=== PATIENT | female | born 1995 | race Two or more races ===

== ENCOUNTER 2021-11-15 15:10 | Emergency (ER) | payer OTHER, SELFPAY ==
[2021-11-15 15:57] VITALS: BP 111/75; PULSE 81; RESP 16; TEMP 37.1; O2SAT 100; BMI 23.8
--- NOTE | 2021-11-15 17:06 | ED_ITS ---
HPI - Abdominal Pain General Chief Complaint: Abdominal Pain Stated Complaint: abd pain,diarrhea, Time Seen by Provider: 11/15/21 17:06 Source: patient and anodizer Mode of arrival: ambulatory Limitations: language barrier History of Present Illness HPI narrative: Patient is a 26 year old female presenting to the emergency department today with abdominal pain and nausea. Patient states that for the last couple of days, she has had epigastric type abdominal pain and nausea. Patient denies any dizz iness, lightheadedness, vomiting, fever, chills, blurry vision, double vision, loss of vision, vaginal bleeding, vaginal discharge, chest pain, difficulty breathing, shortness of breath, back pain, night sweats, pain with urination, increased urinary frequency, increased urinary urgency, blood in her urine or stool, syncope or a near syncopal episode, recent trauma or falls, bowel incontinence, bladder incontinence, bowel retention, bladder retention, or any other complaints at this time. MD elicited complaint: abdominal pain Pertinent past history: none Onset (ago): day(s) Pain Consistency: intermittent Location: diffuse and epigastric Severity: mild Quality: dull Radiation: none Exacerbating factors: nothing Relieving factors: nothing Associated symptoms: nausea Related Data Previous Rx's Medication Instructions Recorded ondansetron 4 mg disintegrating 4 mg PO Q8H 3 Days #9 tab 11/15/21 tablet Allergies Allergy/AdvReac Type Severity Reaction Status Date / Time No Known Allergies Allergy Verified 11/15/21 15:56 Review of Systems Constitutional: Reports no additional constitutional complaints, Denies chills, Denies fever(s) and Denies night sweats Eyes: Reports no additional eye complaints, Denies blurry vision, Denies change in vision, Denies diplopia, Denies eye discharge, Denies loss of vision and Denies eye pain Denies dizziness Cardiovascular: Reports no additional cardiovascular complaints, Denies chest pain, Denies lightheadedness, Denies Loss of Consciousness and Denies dyspnea Respiratory: Reports no additional respiratory complaints and Denies dyspnea Gastrointestinal: Reports no additional gastrointestinal complaints, Reports abdominal pain, Denies melena, Denies hematochezia, Denies change in bowel habits, Denies change in stool character and Reports nausea Genitourinary: Denies hematuria, Denies urinary frequency, Denies dysuria, Denies urinary incontinence, Denies urinary hesitancy and Denies urinary urgency Musculoskeletal: Reports no additional musculoskeletal complaints, Denies numbness and Denies tingling Denies dizziness, Denies loss of vision, Denies numbness and Denies tingling Psychiatric: Reports no additional psychiatric complaints Endocrine: Reports no additional endocrine complaints Hematologic/Lymphatic: Reports no additional hematologic/lymphatic complaints Allergic/Immunologic: Reports no additional allergic/immunologic complaints Physical Exam Verdana 4l Vital Signs: Verdana 4d Verdana 4d Vital Signs: Verdana 4d Verdana 4Bd Last Vital Signs Verdana 4d Tax Auditor New 4d Tax Auditor New 4d Temp 98.5 F 11/15/21 18:00 Tax Auditor New 4d Pulse 79 11/15/21 18:00 Tax Auditor New 4d Resp 16 11/15/21 18:00 BP 116/79 11/15/21 18:00 Pulse Ox 100 11/15/21 18:00 BMI result Body Mass Index 23.8 Const: General: cooperative, no acute distress, alert and awake Nutritional Appearance: well nourished Orientation/consciousness: patient oriented x3 Limitations: no limitations HENMT: Head: Yes normal to inspection and Yes atraumatic Ears: hearing grossly normal bilaterally and external ears normal General nose exam: Normal external nose present, no nasal discharge noted and no epistaxis Face and sinus: Yes normal facial exam, No abrasion and No laceration Mouth: Normal oral and palatal mucosa present, no drooling and no muffled voice Eyes: General: appearance normal, both eyes and all related structures Periorbital: periorbital findings normal Eyelids: Yes eyelids normal Conjunctivae: conjunctivae normal Pupils: Equal, round and reactive pupils present EOM: EOMs intact bilaterally Neck: Neck: Yes normal visual inspection, Yes full ROM and Yes no lymphadenopathy Chest: Chest palpation & inspection: normal inspection of the chest Resp: Effort & Inspection: normal respiratory effort and able to speak in complete sentences Auscultation: clear to auscultation bilaterally Cardio: Rate: regular rate Rhythm: regular rhythm GI: Inspection: Yes normal to inspection Palpation (GI): Soft to palpation, not firm and Tenderness to palpation present (GI) in the epigastrum Auscultation: normal bowel sounds Neuro: General: patient oriented x3 and moves all extremities Cranial nerves: Yes Equal, round and reactive pupils present Cognition (Neuro): normal cognition Motor exam (neuro): 5/5 motor strength present throughout Sensory Exam: Normal double simultaneous stimulation for sensation Coordination: [id number] test normal Extrem: General: Yes normal to inspection, Yes full ROM and Yes capillary refill normal Psych: Appearance: grossly normal Mental Status: mental status grossly normal Affect: normal affect Attitude: cooperative Thought process: Normal thought process present Thought content: Normal thought content present Insight: Good insight present (Psych) MDM - Abdominal Pain MDM Narrative Medical decision making narrative: Patient is a 26 year old female presenting to the emergency department today with abdominal pain and nausea. Patient's physical exam was unremarkable. Patient's blood work was unremarkable. Patient's urine showed no acute process. Patient's EKG was unremarkable. I explained my physical exam findings as well as all test results to the patient. I answered all questions asked by the patient. Patient received PO Zofran which she stated helped her symptoms significantly. I stressed the importance of the patient taking her medication as prescribed. I stressed the importance of the patient following up with her primary care provider. I stressed the importance of the patient returning to the emergency department immediately if her symptoms were to worsen or if she were to develop any dizziness, shortness of breath, difficulty breathing, chest pain, blurry vision, loss of vision, nausea, vomiting, abdominal pain, fever, chills, back pain, or any other complaints. Patient verbalized agreement and understanding with this treatment plan and discharge. Differential Diagnosis Differential diagnosis: Likely abdominal pain, gastroenteritis and gastritis Medical Records Attestation: I reviewed the patient's medical records. Lab Data Attestation: I reviewed the patient's lab results. Result diagrams: 11/15/21 17:51 11/15/21 17:51 Labs: Lab Results 11/15/21 11/15/21 11/15/21 Range/Units 17:31 17:51 17:51 WBC 5.2 (4.8-10.8) X10*3/uL RBC 4.20 (4.20-5.50) X10*6/uL Hgb 12.3 (12.0-16.0) g/dl Hct 36.9 L (37.0-47.0) % MCV 87.9 (80.0-98.0) fL MCH 29.3 (27.0-33.0) pg MCHC 33.3 (31.0-35.0) g/dl RDW 11.5 (11.0-16.0) % Plt Count 242 (160-400) X10*3/uL MPV 10.0 (9.4-12.3) fL Immature Gran % (Auto) 0.2 (0.0-0.4) % Neut % (Auto) 56.0 (45-73) % Lymph % (Auto) 30.8 (20-40) % [place] % (Auto) 7.1 (2-11) % Eos % (Auto) 5.5 H (0-4) % Baso % (Auto) 0.4 (0-2) % Lymph # (Auto) 1.6 (1.2-4.9) X10*3/uL [place] # (Auto) 0.4 (0.1-1.2) X10*3/uL Eos # (Auto) 0.3 (0.0-0.4) X10*3/uL Baso # (Auto) 0.0 (0.0-0.2) X10*3/uL Abs Immat Gran (auto) 0.01 (0.00-0.03) X10*3/uL Absolute Neuts (auto) 2.9 (2.0-8.3) x10*3/uL Absolute Nucleated RBC 0.000 (0.0-0.012) X10*3/uL Nucleated RBC % (auto) 0.0 (0.0-0.2) /100WBC Sodium 139 (135-145) mmol/L Potassium 3.8 (3.3-5.1) mmol/L Chloride 105 (96-108) mmol/L Carbon Dioxide 26 (22-29) mmol/L Anion Gap 12 (12-20) BUN 10 (9-16) mg/dL Creatinine 0.77 (0.5-1.4) mg/dL Estim Creat Clear Calc 87.6 Estimated GFR > 60 Fasting Glucose 74 (60-99) mg/dL Calcium 9.3 (8.4-10.2) mg/dL Magnesium 2.3 (1.6-2.6) mg/dL Total Bilirubin 0.5 (0.0-1.0) mg/dL AST 23 (5-31) U/L ALT 31 (0-31) U/L Alkaline Phosphatase 54 (39-117) U/L Troponin I High Sens (<3.5-17.0) ng/L Total Protein 7.8 (6.5-8.0) g/dL Albumin 4.4 (3.5-5.0) g/dL Urine Color Urine Appearance Urine pH (5.0-8.0) Ur Specific [place] (1.005-1.025) Urine Protein (NEG-TRACE) MG/DL Urine Glucose (UA) (NEG) MG/DL Urine Ketones (NEG) MG/DL Urine Blood (NEG) Urine Nitrite (NEG) Ur Leukocyte Esterase (NEG) Urine Test (NEGATIVE) COVID-19 (LAY) Negative (Negative) COVID-19 Clin Com See Note 11/15/21 11/15/21 11/15/21 Range/Units 17:51 18:01 18:01 WBC (4.8-10.8) X10*3/uL RBC (4.20-5.50) X10*6/uL Hgb (12.0-16.0) g/dl Hct (37.0-47.0) % MCV (80.0-98.0) fL MCH (27.0-33.0) pg MCHC (31.0-35.0) g/dl RDW (11.0-16.0) % Plt Count (160-400) X10*3/uL MPV (9.4-12.3) fL Immature Gran % (Auto) (0.0-0.4) % Neut % (Auto) (45-73) % Lymph % (Auto) (20-40) % [place] % (Auto) (2-11) % Eos % (Auto) (0-4) % Baso % (Auto) (0-2) % Lymph # (Auto) (1.2-4.9) X10*3/uL [place] # (Auto) (0.1-1.2) X10*3/uL Eos # (Auto) (0.0-0.4) X10*3/uL Baso # (Auto) (0.0-0.2) X10*3/uL Abs Immat Gran (auto) (0.00-0.03) X10*3/uL Absolute Neuts (auto) (2.0-8.3) x10*3/uL Absolute Nucleated RBC (0.0-0.012) X10*3/uL Nucleated RBC % (auto) (0.0-0.2) /100WBC Sodium (135-145) mmol/L Potassium (3.3-5.1) mmol/L Chloride (96-108) mmol/L Carbon Dioxide (22-29) mmol/L Anion Gap (12-20) BUN (9-16) mg/dL Creatinine (0.5-1.4) mg/dL Estim Creat Clear Calc Estimated GFR Fasting Glucose (60-99) mg/dL Calcium (8.4-10.2) mg/dL Magnesium (1.6-2.6) mg/dL Total Bilirubin (0.0-1.0) mg/dL AST (5-31) U/L ALT (0-31) U/L Alkaline Phosphatase (39-117) U/L Troponin I High Sens < 3.5 (<3.5-17.0) ng/L Total Protein (6.5-8.0) g/dL Albumin (3.5-5.0) g/dL Urine Color YELLOW Urine Appearance CLEAR Urine pH 5.5 (5.0-8.0) Ur Specific [place] >= 1.030 H (1.005-1.025) Urine Protein NEG (NEG-TRACE) MG/DL Urine Glucose (UA) NEG (NEG) MG/DL Urine Ketones NEG (NEG) MG/DL Urine Blood NEG (NEG) Urine Nitrite NEG (NEG) Ur Leukocyte Esterase NEG (NEG) Urine Test NEGATIVE (NEGATIVE) COVID-19 (LAY) (Negative) COVID-19 Clin Com Discharge Plan Discharge Clinical Impression: Viral illness Patient Disposition: Home, Self-Care Instructions: Viral Syndrome (ED) Prescriptions: New ondansetron 4 mg tablet,disintegrating 4 mg PO Q8H 3 Days Qty: 9 0RF Stand Alone Forms: Work/School Release Interventions: ED Discharge Assessment Last Done: 11/15/21 20:04 Discharge Date/Time: 11/15/21 20:08 Print Language: Maltese [facility] Past Medical History Attestation statement: The following information was validated with the patient. Source: old records reviewed Social History Social History Alcohol intake: current Alcohol intake frequency: a few times a month Patient Tobacco Use Status: Never used Tobacco Use of substances other than those prescribed or required for medical reasons: No Advance Directives: No Advance Directives Information Provided: Yes Patient : No
--- NOTE | 2021-11-15 17:07 | ECG_ITS ---
Test Reason : ABDOMINAL PAIN Blood Pressure : / mmHG Vent. Rate : 070 BPM Atrial Rate : 070 BPM P-R Int : 178 ms QRS Dur : 078 ms QT Int : 376 ms P-R-T Axes : 036 063 034 degrees QTc Int : 406 ms Normal sinus rhythm Normal ECG No previous ECGs available Referred By: Mitzi Payne Electronically Signed By:VERONICA WEINSTEIN MD
[2021-11-15 17:56] LABS: COVID-19 Test Negative (Negative)
[2021-11-15 18:00] VITALS: BP 116/79; PULSE 79; RESP 16; TEMP 36.9; O2SAT 100
[2021-11-15] MEDS: Ondansetron ODT 4 MG TAB.RAPDIS TRANSLINGU (18:05)
[2021-11-15 18:07] LABS: MANUAL DIFF FLAG NO
[2021-11-15 18:10] LABS: Appearance Urine CLEAR; Color Urine YELLOW; Glucose Urine UA NEG (NEG); Leukocyte Esterase Urine NEG (NEG); Nitrite Urine NEG (NEG); PH 5.5 (5.0-8.0); Specific Gravity - Urine >= 1.030 (1.005-1.025); Urine Blood NEG (NEG); Urine Ketones NEG (NEG); Urine Protein NEG (NEG-TRACE)
[2021-11-15 18:11] LABS: UPreg QC Valid YES; Urine Pregnancy NEGATIVE (NEGATIVE)
[2021-11-15 18:17] LABS: Basophils Percent Auto 0.4 % (0-2); Eosinophils Absolute Auto 0.3 X10*3/uL (0.0-0.4); Eosinophils Percent Auto 5.5 % (0-4); Hematocrit 36.9 % (37.0-47.0); Hemoglobin 12.3 g/dl (12.0-16.0); Imm Gran Abs Auto 0.01 X10*3/uL (0.00-0.03); Imm Gran Pct Auto 0.2 % (0.0-0.4); Lymphocytes Absolute Auto 1.6 X10*3/uL (1.2-4.9); Lymphocytes Percent Auto 30.8 % (20-40); Mean Corpuscular HGB Conc 33.3 g/dl (31.0-35.0); Mean Corpuscular Hemoglobin 29.3 pg (27.0-33.0); Mean Corpuscular Volume 87.9 fL (80.0-98.0); Monocytes Absolute Auto 0.4 X10*3/uL (0.1-1.2); Monocytes Percent Auto 7.1 % (2-11); Neutrophils Absolute Auto 2.9 x10*3/uL (2.0-8.3); Platelet Count 242 X10*3/uL (160-400); Red Cell Distribution Width 11.5 % (11.0-16.0); White Blood Count 5.2 X10*3/uL (4.8-10.8)
[2021-11-15 18:30] LABS: Troponin-I High Sensitivity < 3.5 ng/L (<3.5-17.0)
[2021-11-15 18:43] LABS: Alanine Aminotransferase 31 U/L (0-31); Albumin Level 4.4 g/dL (3.5-5.0); Alkaline Phosphatase 54 U/L (39-117); Anion Gap 12 (12-20); Aspartate Amino Transferase 23 U/L (5-31); Bilirubin Total 0.5 mg/dL (0.0-1.0); Blood Urea Nitrogen 10 mg/dL (9-16); Calcium 9.3 mg/dL (8.4-10.2); Carbon Dioxide 26 mmol/L (22-29); Chloride 105 mmol/L (96-108); Creatinine Clr Calc Pharmacy 87.6; Estimated Glomerular Filt Rate > 60; Glucose Fasting 74 mg/dL (60-99); Magnesium 2.3 mg/dL (1.6-2.6); Potassium 3.8 mmol/L (3.3-5.1); Sodium 139 mmol/L (135-145); Total Protein 7.8 g/dL (6.5-8.0)
== END 2021-11-15 20:08 | disposition home or self-care (01) ==
PROVIDERS: Physician Assistant Medical; Emergency Provider Emergency Medicine; PCP Internal Medicine
DX: B34.9 Viral infection, unspecified (principal); R10.13 Epigastric pain; Z20.822 Contact with and (suspected) exposure to COVID-19; Z79.899 Other long term (current) drug therapy
CPT/HCPCS: 36415; 80053; 81003; 81025; 83735; 84484; 85025; 87635; 93005; 99283; 99284

== ENCOUNTER 2022-01-28 10:09 | Emergency (ER) | payer OTHER, SELFPAY ==
--- NOTE | ~2022-01-28 | XR_ITS ---
EXAMINATION: XR CHEST CLINICAL INFORMATION: Asthma. Wheezing. COMPARISON: None TECHNIQUE: 2 views of the chest were obtained. FINDINGS: No significant abnormality is noted involving the heart, lungs, mediastinum, bony thorax or soft tissues. XR/XR chest 2V IMPRESSION: Unremarkable examination.
[2022-01-28 10:37] VITALS: BP 128/87; PULSE 77; RESP 18; TEMP 36.1; O2SAT 100; BMI 24.7
--- NOTE | 2022-01-28 10:47 | ED_ITS ---
HPI - General Adult General Chief complaint: General Medical Stated complaint: headache,cough,back pain Time Seen by Provider: 01/28/22 10:45 Source: patient Mode of arrival: ambulatory Limitations: no limitations History of Present Illness HPI narrative: 27 y/o female with history of asthma, seasonal allergies, presents to the ER with 2 days of frontal headaches, asthma symptoms including dry cough and wheezing as well as low back pain that is worse with coughing. She states she was up all night coughing and needed take Tylenol for her back pain which improved somewhat. She states she has been using her nebulizer treatments for her asthma with improvement. She denies any fevers or chills. She is not bring up any phlegm. Unknown asthma triggers. MD complaint: Cough & headache Onset (ago): day(s) (2) Location: chest and back Radiation: non-radiation Severity: moderate Quality: aching Pain Consistency: intermittent Relieving factors: medication Exacerbating factors: other (coughing) Associated symptoms: headaches Treatments prior to arrival: none Related Data Previous Rx's Medication Instructions Recorded ondansetron 4 mg disintegrating 4 mg PO Q8H 3 Days #9 tab 11/15/21 tablet azithromycin 250 mg tablet See Rx Instructions .ROUTE 01/28/22 (Zithromax Z-Davian) .COMPLEX #6 tab prednisone 20 mg tablet 40 mg PO DAILY #10 tab 01/28/22 Allergies Allergy/AdvReac Type Severity Reaction Status Date / Time No Known Allergies Allergy Verified 11/15/21 15:56 Review of Systems Review of Systems: Constitutional: No Fever, No Chills ENT/Mouth: No sore throat, No Rhinorrhea, No Swallowing Difficulty Eyes: No Eye Pain, No Swelling, No Redness Cardiovascular: No Chest Pain, No SOB, No Orthopnea, No Edema Respiratory: + Cough, No Sputum, + Wheezing, No dyspnea Gastrointestinal: No Nausea, No Vomiting, No Diarrhea, No abdominal Pain Musculoskeletal: No joint pain, + Myalgias Skin: No Skin Lesions, No rash Neuro: No Weakness, No Numbness, No Dizziness, + Headache Psych: No Anxiety/Panic, No Depression Heme/Lymph: No Bruising, No Lymphadenopathy PMFSH Past Medical History Medical History (Updated 01/28/22 @ 12:02 by PABLO Mcgarry) No known health problems Social History Social History Alcohol intake: current Alcohol intake frequency: a few times a month Patient Tobacco Use Status: Never used Tobacco Advance Directives: No Advance Directives Information Provided: No Patient : No Physical Exam ED Vital Signs: Vital Signs - 24 hr 01/28/22 10:37 Temperature 96.9 F Pulse Rate 77 Respiratory Rate 18 Blood Pressure 128/87 Pulse Oximetry 100 BMI result Body Mass Index 24.7 Appearance: Alert. Oriented X3. No acute distress. Eyes: Pupils equal, round and reactive to light. ENT: Pharynx normal. Normal tonsils, uvula midline. Neck: Normal inspection. Neck supple. CVS: Normal heart rate and rhythm. Pulses normal. Respiratory: No respiratory distress. Breath sounds with faint end expiratory wheeze in left lower lobe otherwise clear throughout. No rhonchi. Skin: Skin warm and dry. Normal skin color. Normal skin turgor. No rashes. Extremities: Normal inspection, normal range of motion x4. Neuro: Oriented X 3. Grossly normal, nonfocal. Course Course Course Narrative: 27-year-old female with history of asthma and seasonal allergies presents to the ER with a headache, dry cough, wheezing and lower back pain for the last 2 days. Only mild end expiratory wheeze in LLL, no rhonchi, resp distress. Will get CXR and COVID/Flu swabs. Reevaluation(s) Reevaluation #1: Chest x-ray is clear. COVID and flu were negative. Symptoms are most likely due to acute bronchitis. Will treat accordingly. Stable for discharge home. She has plenty of her albuterol nebulizer treatments and will continue to use them while she is not feeling well. Stable for DC. Medical Decision Making Lab Data Labs: Lab Results 01/28/22 01/28/22 Range/Units 11:00 11:00 COVID-19 (LAY) Negative (Negative) COVID-19 Clin Com See Note Influenza Type A ([place]) Negative (Negative) Influenza Type B ([facility]) Negative (Negative) Influenza A & B Note See Note Critical Care Time Critical Care Time Critical Care Time: No Discharge Plan Discharge Clinical Impression: Bronchitis Patient Disposition: Home, Self-Care Instructions: Acute Bronchitis (ED) Additional Instructions: Your chest x-ray today was normal. You are negative for COVID-19 & Influenza. Your symptoms are most likely due to combination of bronchitis illness and seasonal allergies. Continue to use your nebulizers 2-3 times per day until you are feeling better. Take the prescribed medications as directed. Follow up with your doctor as needed. If you develop new or worsening symptoms call 911 or come back to the ER for further evaluation. Ruiz radiograf?a de t?rax de hoy fue normal. Eres negativo para COVID-19 e Influenza. Lo m?s probable es que ava s?ntomas se deban a nuvia combinaci?n de bronquitis y alergias estacionales. Contin?e usando ava nebulizadores 2 o 3 veces al d?a hasta que se sienta mejor. [place] los medicamentos recetados seg?n las indicaciones. Pallavi un seguimiento con ruiz m?dico seg?n sea necesario. Si desarrolla s?ntomas nuevos o que empeoran, llame al 911 o regrese a la lucretia de emergencias para nuvia evaluaci?n adicional. Prescriptions: New prednisone 20 mg tablet 40 mg PO DAILY Qty: 10 0RF azithromycin [Zithromax Z-Davian] 250 mg tablet See Rx Instructions .ROUTE .COMPLEX Qty: 6 0RF Rx Instructions: take 500 mg today (day 1), then 250 mg for 4 days (days 2-5) No Action ondansetron 4 mg tablet,disintegrating 4 mg PO Q8H 3 Days Qty: 9 0RF Referrals: Shala Clarke, RESEARCH CHEMIST [Primary Care Provider] - 1 week (bronchitis ) Print Language: Faroese
[2022-01-28 11:24] LABS: Influenza A Negative (Negative); Influenza B2 Negative (Negative)
[2022-01-28 11:36] LABS: COVID-19 Test Negative (Negative); IDNOW Serial# 16C4AD1C
== END 2022-01-28 12:21 | disposition home or self-care (01) ==
PROVIDERS: Physician Assistant; Emergency Provider Emergency Medicine; PCP Nurse Practitioner Acute Care
DX: J40 Bronchitis, not specified as acute or chronic (principal); Z20.822 Contact with and (suspected) exposure to COVID-19; R51.9 Headache, unspecified; M54.50 Low back pain, unspecified
CPT/HCPCS: 71046; 87502; 87635; 99283

== ENCOUNTER 2022-01-29 13:59 | Emergency (ER) | payer OTHER, SELFPAY ==
--- NOTE | ~2022-01-29 | XR_ITS ---
EXAMINATION: XR CHEST CLINICAL INFORMATION: Dyspnea COMPARISON: Previous chest x-ray from yesterday TECHNIQUE: Frontal view of the chest was obtained. FINDINGS: No significant abnormality is noted involving the heart, lungs, mediastinum, bony thorax or soft tissues. XR/XR chest 1V IMPRESSION: Unremarkable examination.
--- NOTE | 2022-01-29 15:16 | ECG_ITS ---
Test Reason : CHEST PAIN Blood Pressure : / mmHG Vent. Rate : 079 BPM Atrial Rate : 079 BPM P-R Int : 154 ms QRS Dur : 076 ms QT Int : 358 ms P-R-T Axes : 040 050 036 degrees QTc Int : 410 ms Normal sinus rhythm Normal ECG When compared with ECG of 15-NOV-2021 17:36, No significant change was found Referred By: Generic ED Physician Electronically Signed By:Loc Null
[2022-01-29 15:33] VITALS: BMI 22.4
[2022-01-29 15:39] VITALS: BP 124/66; PULSE 78; RESP 16; TEMP 36.2; O2SAT 98
[2022-01-29 16:01] LABS: Basophils Percent Auto 0.2 % (0-2); Eosinophils Percent Auto 0.1 % (0-4); Hematocrit 40.3 % (37.0-47.0); Hemoglobin 13.4 g/dl (12.0-16.0); Imm Gran Abs Auto 0.03 X10*3/uL (0.00-0.03); Imm Gran Pct Auto 0.3 % (0.0-0.4); Lymphocytes Absolute Auto 0.8 X10*3/uL (1.2-4.9); Lymphocytes Percent Auto 8.3 % (20-40); MANUAL DIFF FLAG SCAN; Mean Corpuscular HGB Conc 33.3 g/dl (31.0-35.0); Mean Corpuscular Hemoglobin 29.3 pg (27.0-33.0); Mean Corpuscular Volume 88.2 fL (80.0-98.0); Mean Platelet Volume 9.5 fL (9.4-12.3); Monocytes Absolute Auto 0.1 X10*3/uL (0.1-1.2); Monocytes Percent Auto 0.9 % (2-11); Neutrophils Absolute Auto 9.2 x10*3/uL (2.0-8.3); Neutrophils Percent Auto 90.2 % (45-73); Platelet Count 264 X10*3/uL (160-400); Red Blood Count 4.57 X10*6/uL (4.20-5.50); Red Cell Distribution Width 11.5 % (11.0-16.0); SCAN SMEAR FLAG 1; White Blood Count 10.1 X10*3/uL (4.8-10.8)
[2022-01-29 16:19] LABS: Anion Gap 13 (12-20); Blood Urea Nitrogen 9 mg/dL (9-16); Calcium 9.7 mg/dL (8.4-10.2); Carbon Dioxide 24 mmol/L (22-29); Chloride 104 mmol/L (96-108); Creatinine Clr Calc Pharmacy 98.7; Estimated Glomerular Filt Rate > 60; Glucose Random 121 mg/dL (60-115); Sodium 137 mmol/L (135-145)
[2022-01-29 16:24] LABS: B Type Natriuretic Peptide < 10 pg/mL (<100); Troponin-I High Sensitivity < 3.5 ng/L (<3.5-17.0)
[2022-01-29 16:34] LABS: SLIDE REVIEW VERIFIED
--- NOTE | 2022-01-29 19:25 | PC.NURSE ---
patient reports feeling worse at this time. patient states that she would like to leave. RN notes elevated trop on blood work drawn before this RN was triage nurse. this RN was never contacted about elevated trop. gas charger made aware and patient moved to area where triage nurse can better monitor patient. no traffic monitor specialist available. repeat trop drawn. family and patient updated to best of RN's knowledge and informed of care plan going forward.
[2022-01-29 19:27] VITALS: BP 163/61; PULSE 65; RESP 19; O2SAT 98
[2022-01-29 23:53] VITALS: BP 116/80; PULSE 73; RESP 16; TEMP 36.8; O2SAT 98
--- NOTE | 2022-01-29 23:55 | ED.CHESTPAIN ---
HPI - Chest Pain General Chief Complaint: Chest Pain Stated Complaint: Chest tightness/SOB Time Seen by Provider: 01/29/22 23:41 Source: patient Mode of arrival: ambulatory Limitations: no limitations History of Present Illness HPI narrative: Patient comes to the emergency room complaining of bilateral chest pain since this morning. Patient states that patient has been coughing quite a bit and now every time she coughs she has chest pain. Patient was seen here yesterday for bronchitis. Patient denies shortness of breath. Related Data Previous Rx's Medication Instructions Recorded ondansetron 4 mg disintegrating 4 mg PO Q8H 3 Days #9 tab 11/15/21 tablet azithromycin 250 mg tablet See Rx Instructions .ROUTE 01/28/22 (Zithromax Z-Davian) .COMPLEX #6 tab prednisone 20 mg tablet 40 mg PO DAILY #10 tab 01/28/22 albuterol sulfate 1.25 mg/3 mL 2.5 mg (6 mL) INHALATION Q4-6H PRN 01/29/22 solution for nebulization #15 ml Allergies Allergy/AdvReac Type Severity Reaction Status Date / Time dexbrompheniramine Allergy Unknown Verified 01/29/22 15:32 [From [facility]] guaifenesin [From [facility]] Allergy Unknown Verified 01/29/22 15:32 phenylephrine [From [facility]] Allergy Unknown Verified 01/29/22 15:32 pseudoephedrine [From [facility]] Allergy Unknown Verified 01/29/22 15:32 Review of Systems Review of Systems: Constitutional : No Weight loss, No Fever, No Chills, No Night Sweats, No Fatigue, No Malaise ENT/Mouth : No Hearing loss, No Ear Pain, complaining of Nasal Congestion, No Sinus Pain, No Hoarseness, No sore throat, No Rhinorrhea, No Swallowing Difficulty Eyes: No Eye Pain, No Swelling, No Redness, No Foreign Body, No Discharge, No Vision Changes Cardiovascular : Complaining of bilateral Chest Pain with coughing, No SOB, No Dyspnea on Exertion, No Orthopnea, No Edema, No Palpitations Respiratory : Complaining of Cough, No Sputum, No Wheezing, No Smoke Exposure, No Dyspnea Gastrointestinal : No Nausea, No Vomiting, No Diarrhea, No Constipation, No abdominal Pain, No Hematochezia, No Melena Genitourinary : no irregular bleeding, No Dysuria, No Urinary Frequency, No Hematuria, No Urinary Incontinence, No Urgency, No Flank Pain, No Urinary Flow Changes, No Hesitancy Musculoskeletal : No joint pain, No Myalgias, No Joint Swelling Skin : No Skin Lesions, No rash Neuro : No Weakness, No Numbness, No Paresthesias, No Loss of Consciousness, No Dizziness, No Headache Psych : No Anxiety/Panic, No Depression, No SI/HI/AH/VH, No Social Issues, Heme/Lymph: No Bruising, No Bleeding,No Lymphadenopathy Endocrine : No Polyuria, No Polydipsia, No Temperature Intolerance [facility] Past Medical History Medical History Hypoglycemia Hypothyroid No known health problems Social History Social History Alcohol intake: current Alcohol intake frequency: a few times a month Patient Tobacco Use Status: Never used Tobacco Advance Directives: No Physical Exam Vital Signs: Vital Signs: Last Vital Signs Temp 97.2 F 01/29/22 15:39 Pulse 65 01/29/22 19:27 Resp 19 01/29/22 19:27 BP 163/61 H 01/29/22 19:27 Pulse Ox 98 01/29/22 19:27 BMI result Body Mass Index 22.4 Const: Other: Appearance: Alert. Oriented X3. No acute distress. Well-appearing Eyes: Pupils equal, round and reactive to light. ENT: Pharynx normal. Neck: Normal inspection. Neck supple. No lymph nodes noted. No crepitus CVS: Normal heart rate and rhythm. Pulses normal. Normal S1 and S2 Respiratory: No respiratory distress. Breath sounds normal. No Wheezing. No rales Abdomen: Soft and nontender. No rigidity. No distention. Skin: Skin warm and dry. Normal skin color. Normal skin turgor. Extremities: No lower extremity edema. No Lacerations. No Rash Neuro: Oriented X 3. No motor deficit. No sensory deficit. Moving all extremities. No slurred speech. CN 2 through 12 grossly intact Psych: calm, cooperative, normal affect Course Course Course Narrative: I discussed with the patient that she likely has costochondritis from coughing versus pleurisy. Patient's troponin is negative, chest x-ray negative. Patient was given 1 dose of IM Toradol. Discussed with the patient that she will be a bit achy for several weeks while a cough lasts Patient states that she has history of asthma, she has not had an asthma exacerbation but is concerned that she does not have albuterol. Patient states she has a machine at home and is requesting a prescription for albuterol neb treatments at home. Yesterday, patient was prescribed azithromycin, prednisone MDM - Chest Pain Lab Data Result diagrams: 01/29/22 15:42 01/29/22 15:42 Labs: Lab Results 01/29/22 01/29/22 01/29/22 Range/Units 15:42 15:42 15:42 WBC 10.1 (4.8-10.8) X10*3/uL RBC 4.57 (4.20-5.50) X10*6/uL Hgb 13.4 (12.0-16.0) g/dl Hct 40.3 (37.0-47.0) % MCV 88.2 (80.0-98.0) fL MCH 29.3 (27.0-33.0) pg MCHC 33.3 (31.0-35.0) g/dl RDW 11.5 (11.0-16.0) % Plt Count 264 (160-400) X10*3/uL MPV 9.5 (9.4-12.3) fL Immature Gran % (Auto) 0.3 (0.0-0.4) % Neut % (Auto) 90.2 H (45-73) % Lymph % (Auto) 8.3 L (20-40) % Archer % (Auto) 0.9 L (2-11) % Eos % (Auto) 0.1 (0-4) % Baso % (Auto) 0.2 (0-2) % Lymph # (Auto) 0.8 L (1.2-4.9) X10*3/uL Archer # (Auto) 0.1 (0.1-1.2) X10*3/uL Eos # (Auto) 0.0 (0.0-0.4) X10*3/uL Baso # (Auto) 0.0 (0.0-0.2) X10*3/uL Abs Immat Gran (auto) 0.03 (0.00-0.03) X10*3/uL Absolute Neuts (auto) 9.2 H (2.0-8.3) x10*3/uL Absolute Nucleated RBC 0.000 (0.0-0.012) X10*3/uL Nucleated RBC % (auto) 0.0 (0.0-0.2) /100WBC Smear Tech's Comments VERIFIED Sodium 137 (135-145) mmol/L Potassium 4.0 (3.3-5.1) mmol/L Chloride 104 (96-108) mmol/L Carbon Dioxide 24 (22-29) mmol/L Anion Gap 13 (12-20) BUN 9 (9-16) mg/dL Creatinine 0.77 (0.5-1.4) mg/dL Estim Creat Clear Calc 98.7 Estimated GFR > 60 Random Glucose 121 H (60-115) mg/dL Calcium 9.7 (8.4-10.2) mg/dL Troponin I High Sens < 3.5 (<3.5-17.0) ng/L B-Natriuretic Peptide < 10 (<100) pg/mL Discharge Plan Discharge Clinical Impression: Pleurisy Patient Disposition: Home, Self-Care Instructions: Pleurisy (ED) Additional Instructions: Please follow-up with your primary care physician tomorrow. If you have any worsening or new symptoms, please return to the emergency room or call 911 Prescriptions: New albuterol sulfate 1.25 mg/3 mL solution for nebulization 2.5 mg inhalation Q4-6H PRN (Reason: shortness of breath or wheezing) Qty: 15 0RF No Action prednisone 20 mg tablet 40 mg PO DAILY Qty: 10 0RF azithromycin [Zithromax Z-Davian] 250 mg tablet See Rx Instructions .ROUTE .COMPLEX Qty: 6 0RF Rx Instructions: take 500 mg today (day 1), then 250 mg for 4 days (days 2-5) ondansetron 4 mg tablet,disintegrating 4 mg PO Q8H 3 Days Qty: 9 0RF
[2022-01-30] MEDS: Ketorolac Tromethamine 60 MG/2 ML VIAL IM (00:35)
== END 2022-01-30 00:38 | disposition home or self-care (01) ==
PROVIDERS: Emergency Provider Emergency Medicine; PCP Nurse Practitioner Acute Care
DX: R09.1 Pleurisy (principal); R07.89 Other chest pain; R06.02 Shortness of breath; R05.9 Cough, unspecified; Z79.899 Other long term (current) drug therapy
CPT/HCPCS: 36415; 71045; 80048; 83880; 84484; 85025; 93005; 96372; 99284; J1885

== ENCOUNTER 2022-03-20 15:41 | Outpatient (REF) | payer OTHER, SELFPAY ==
--- NOTE | ~2022-03-20 | US_ITS ---
EXAMINATION: US THYROID CLINICAL INFORMATION: Nontoxic single thyroid nodule. COMPARISON: None TECHNIQUE: Linear transducer grayscale and color Doppler examination with attention to the region of the thyroid. FINDINGS: SIZE: Measurements of the thyroid lobes and nodules are given in sagittal, anteroposterior and transverse dimensions respectively. Right Thyroid Lobe: 4.6 x 1.64 x 1.32 cm, volume 5.21 mL. Parenchyma: The gland echotexture is homogeneous. Thyroid vascularity is increased. Left Thyroid Lobe: 3.73 x 1.0 x 1.13 cm, volume 2.17 mL. Parenchyma: The gland echotexture is homogeneous. Thyroid vascularity is increased. Isthmus: 0.32 cm in maximum AP dimension. Estimated total number of nodules greater than or equal to 1 cm: 0. 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 Location: Right mid. Size: 0.8 x 0.66 x 0.73 cm, volume 0.2 mL. Nodule characteristics: Composition: Solid (2). Echogenicity: Isoechoic (1) with a hypoechoic rim. Shape: Not taller than wide (0). Margins: Smooth (0). Echogenic Foci: None (0). ACR TI-RADS total points: 3 ACR TI-RADS category: 3 2. Location: Right isthmus. Size: 0.41 x 0.18 x 0.33 cm, volume 0.01 mL. Nodule characteristics: Composition: Spongiform (0). Echogenicity: Anechoic (0). Shape: Not taller than wide (0). Margins: Smooth (0). Echogenic Foci: None (0). ACR TI-RADS total points: 0 ACR TI-RADS category: 1 3. Location: Isthmus. Size: 0.71 x 0.3 x 0.17 cm, volume 0.02 mL. Nodule characteristics: Composition: Spongiform (0). Echogenicity: Anechoic (0). Shape: Not taller than wide (0). Margins: Smooth (0). Echogenic Foci: None (0). ACR TI-RADS total points: 0 ACR TI-RADS category: 1 4. Location: Left mid. Size: 0.26 x 0.18 x 0.24 cm, volume 0.01 mL. Nodule characteristics: Composition: Cystic(0). ACR TI-RADS total points: 0 ACR TI-RADS category: 1 NODES: No lymphadenopathy is seen in the tissue surrounding the thyroid gland. US/US thyroid IMPRESSION: There are 4 thyroid nodules, largest measuring 0.8 cm in the right mid pole (TR 3) and 0.7 cm in the isthmus (TR 1), not meeting size criteria for follow up according to the ACR guidelines below. Recommend management per clinical discretion. ACR TI-RADS RECOMMENDATION REFERENCE: Ultrasound-guided fine-needle aspiration, followup ultrasound, no further follow up. * TR1 (0 point) and TR 2 (2 points): No FNA or follow up * TR3 (3 points): FNA if more than or equal to 2.5 cm in maximum dimension, followup ultrasound in 1, 3 and 5 years if 1.5 to 2.4 cm in maximum dimension. * TR4 (4-6 points): FNA if more than or equal to 1.5 cm in maximum dimension, followup ultrasound in 1, 2, 3 and 5 years if 1 to 1.4 cm in maximum dimension. * TR5 (more than or equal to 7 points): FNA if more than or equal to 1 cm in maximum dimension, followup ultrasound every year for 5 years if 0.5 to 0.9 cm in maximum dimension. * TR3, TR4 or TR5 nodules that are below the size threshold for follow up receive no follow up.
== END 2022-03-20 15:42 | disposition home or self-care (01) ==
LOC: HO.HMGCX 15:41
PROVIDERS: PCP Nurse Practitioner Family; Visit Provider Nurse Practitioner Family
DX: E04.1 Nontoxic single thyroid nodule (principal)
CPT/HCPCS: 76536

== ENCOUNTER 2022-04-15 12:10 | Outpatient (REF) | payer OTHER, SELFPAY ==
[2022-04-16 09:34] LABS: CT PCR NOT DETECTED (Not Detect.); NG PCR NOT DETECTED (Not Detect.)
[2022-04-16 10:04] LABS: BV Int Neg Control Negative (Negative); BV Int Pos Control Positive (Positive)
[2022-04-18 04:32] LABS: HPV mRNA E6/E7 rflx Not Detected (Not Detected)
== END 2022-04-15 12:11 | disposition home or self-care (01) ==
LOC: HO.LAB 12:10
PROVIDERS: Visit Provider Advanced Practice Midwife
DX: Z12.4 Encounter for screening for malignant neoplasm of cervix (principal); Z11.3 Encounter for screening for infections with a predominantly sexual mode of transmission; Z11.51 Encounter for screening for human papillomavirus (HPV)
CPT/HCPCS: 87480; 87491; 87510; 87591; 87624; 87660; 88142

== ENCOUNTER 2022-05-25 16:00 | Emergency (ER) | payer OTHER, SELFPAY ==
--- NOTE | ~2022-05-25 | US_ITS ---
EXAMINATION: OBSTETRIC ULTRASOUND - FIRST TRIMESTER CLINICAL INFORMATION: Left lower quadrant tenderness. Last menstrual period 04/22/2022 COMPARISON: None TECHNIQUE: Transabdominal and transvaginal imaging of the uterus was performed utilizing ponce scale and color doppler technique. FINDINGS: Uterus is normal in size and configuration. Endometrial signature is homogeneously thickened measuring up to 2.2 cm. No intrauterine gestational sac is identified. Ovaries normal in size and appearance measuring 2.6 x 2.2 x 2.0 cm on the right 2.3 x 1.8 x 2.4 cm on the left. Physiologic follicles present bilaterally. No suspicious adnexal cysts or masses. Small free fluid within the cul-de-sac is within physiologic normal limits. US/US transvaginal IMPRESSION: * No intrauterine gestation is identified. * The endometrial signature is homogeneously thickened measuring up to 2.2 cm. * No evidence of ectopic at this time. * Considerations include very early versus occult ectopic versus spontaneous . Recommend correlation with serial hCG levels and short interval follow-up ultrasound in one week, if clinically indicated.
--- NOTE | ~2022-05-25 | US_ITS ---
EXAMINATION: OBSTETRIC ULTRASOUND - FIRST TRIMESTER CLINICAL INFORMATION: Left lower quadrant tenderness. Last menstrual period 04/22/2022 COMPARISON: None TECHNIQUE: Transabdominal and transvaginal imaging of the uterus was performed utilizing ponce scale and color doppler technique. FINDINGS: Uterus is normal in size and configuration. Endometrial signature is homogeneously thickened measuring up to 2.2 cm. No intrauterine gestational sac is identified. Ovaries normal in size and appearance measuring 2.6 x 2.2 x 2.0 cm on the right 2.3 x 1.8 x 2.4 cm on the left. Physiologic follicles present bilaterally. No suspicious adnexal cysts or masses. Small free fluid within the cul-de-sac is within physiologic normal limits. US/US OB <= 14 weeks fetus IMPRESSION: * No intrauterine gestation is identified. * The endometrial signature is homogeneously thickened measuring up to 2.2 cm. * No evidence of ectopic at this time. * Considerations include very early versus occult ectopic versus spontaneous . Recommend correlation with serial hCG levels and short interval follow-up ultrasound in one week, if clinically indicated.
[2022-05-25 16:23] VITALS: BP 119/79; PULSE 87; RESP 18; TEMP 36.6; O2SAT 99; BMI 26.5
[2022-05-25 16:54] LABS: Basophils Percent Auto 0.5 % (0-2); Eosinophils Absolute Auto 0.3 X10*3/uL (0.0-0.4); Eosinophils Percent Auto 3.3 % (0-4); Imm Gran Abs Auto 0.04 X10*3/uL (0.00-0.03); Imm Gran Pct Auto 0.5 % (0.0-0.4); Lymphocytes Absolute Auto 2.4 X10*3/uL (1.2-4.9); Lymphocytes Percent Auto 29.2 % (20-40); MANUAL DIFF FLAG NO; Mean Corpuscular HGB Conc 34.3 g/dl (31.0-35.0); Mean Corpuscular Hemoglobin 29.6 pg (27.0-33.0); Mean Corpuscular Volume 86.2 fL (80.0-98.0); Mean Platelet Volume 9.5 fL (9.4-12.3); Monocytes Absolute Auto 0.7 X10*3/uL (0.1-1.2); Monocytes Percent Auto 8.3 % (2-11); Neutrophils Absolute Auto 4.8 x10*3/uL (2.0-8.3); Neutrophils Percent Auto 58.2 % (45-73); Platelet Count 215 X10*3/uL (160-400); Red Blood Count 4.06 X10*6/uL (4.20-5.50); Red Cell Distribution Width 11.5 % (11.0-16.0); White Blood Count 8.2 X10*3/uL (4.8-10.8)
[2022-05-25 17:04] LABS: Appearance Urine CLEAR; Color Urine YELLOW; Glucose Urine UA NEG (NEG); Leukocyte Esterase Urine NEG (NEG); Nitrite Urine NEG (NEG); PH 5.5 (5.0-8.0); Urine Blood NEG (NEG); Urine Ketones NEG (NEG); Urine Protein NEG (NEG-TRACE)
[2022-05-25 17:07] LABS: UPreg QC Valid YES; Urine Pregnancy POSITIVE (NEGATIVE)
[2022-05-25 17:16] LABS: Alanine Aminotransferase 27 U/L (0-31); Albumin Level 4.6 g/dL (3.5-5.0); Alkaline Phosphatase 45 U/L (39-117); Anion Gap 14 (12-20); Aspartate Amino Transferase 21 U/L (5-31); Bilirubin Direct 0.2 mg/dL (0.0-0.5); Bilirubin Total 0.4 mg/dL (0.0-1.0); Blood Urea Nitrogen 13 mg/dL (9-16); Carbon Dioxide 22 mmol/L (22-29); Chloride 104 mmol/L (96-108); Estimated Glomerular Filt Rate > 60; Glucose Random 93 mg/dL (60-115); Lipase 50 U/L (8-78); Potassium 3.6 mmol/L (3.3-5.1); Sodium 136 mmol/L (135-145); Total Protein 7.6 g/dL (6.5-8.0)
[2022-05-25 17:23] LABS: HCG Quantitative 831 mIU/mL
--- NOTE | 2022-05-26 00:11 | ED.PREGNANCY ---
HPI - General Chief complaint: Abdominal Pain Stated complaint: 5 Weeks Preg Abdominal Pain Time Seen by Provider: 05/25/22 21:50 Source: patient Mode of arrival: ambulatory Limitations: language barrier (Irish speaking only) History of Present Illness HPI Narrative: 27-year-old female who presents emergency department for evaluation of pelvic pain and . She states that her last menstrual period was on 04/22/2022 and she took 2 home tests which were positive. This would make her 4 weeks and 5 days . She states that she was approximately 1 year prior and had a spontaneous miscarriage but did not get any care for that . This makes the patient a . She states that over the last 2 days she has been experiencing pelvic pain. The pain came on suddenly. She points to her suprapubic area and left lower quadrant. She states the pain feels like menstrual cramping and stabbing. The pain is 7/10 at its worst. The pain is constant. The patient denied any other associated symptoms such as fever, chills, chest pain, shortness of breath, nausea, vomiting, diarrhea, dysuria. She has noted some increased frequency. She denied lightheadedness or dizziness. She has not noticed any vaginal bleeding or vaginal discharge. MD Complaint: abdominal pain Onset (ago): day(s) (2) Pain Consistency: constant Location: pelvis (Suprapubic and left lower quadrant) Severity: moderate Severity scale (1-10): 7 Quality: Cramping and Stabbing Relieving factors: none Exacerbating factors: none Associated symptoms: other (Urinary frequency) Vaginal discharge: none Vaginal bleeding: none Date of Last Menstrual Period: 04/22/22 Patient : Yes (Two home test) Number of Weeks : 4 weeks 5 days OB History - Previous Pregnancies: miscarriage care: followed by OB (Dr. Amie العراقي) Related Data : 2 Para: 1 Total number of abortions (spontaneous and elective): 1 Previous Rx's Medication Instructions Recorded albuterol sulfate 1.25 mg/3 mL 2.5 mg (6 mL) inhalation Q4-6H PRN 01/29/22 solution for nebulization shortness of breath or wheezing #15 mL albuterol sulfate 90 mcg/actuation 2 puff inhalation Q4-6H PRN 02/19/22 aerosol inhaler (ProAir HFA) shortness of breath or wheezing #8.5 grams omeprazole 20 mg capsule,delayed 20 mg PO DAILY #30 caps 03/19/22 release Allergies Allergy/AdvReac Type Severity Reaction Status Date / Time dexbrompheniramine Allergy Unknown Verified 04/15/22 11:30 [From [facility]] guaifenesin [From [facility]] Allergy Unknown Verified 04/15/22 11:30 phenylephrine [From [facility]] Allergy Unknown Verified 04/15/22 11:30 pseudoephedrine [From [facility]] Allergy Unknown Verified 04/15/22 11:30 Review of Systems Review of Systems: Yes all other systems are reviewed and are negative [facility] Past Medical History [facility] Narrative: Past medical history: Asthma, GERD, hypothyroidism. Past surgical history: None. Social history: She denies tobacco use. She occasionally drinks alcohol. She denies drug use. Medical History Encounter to establish care Hypoglycemia Hypothyroid Surgical History No pertinent past surgical history : 2 Para: 1 Total number of abortions (spontaneous and elective): 1 Date of Last Menstrual Period: 04/22/22 Family History Family History Mother No problems noted. Father Seizure Respiratory failure Social History Social History Housing: Apartment Alcohol intake: current Alcohol intake frequency: a few times a month Patient Tobacco Use Status: Never used Tobacco e-Cigarette/Vaping Use: Never Used Second Hand Smoke Exposure: No Advance Directives: No Advance Directives Information Provided: No service: No Current occupational status: employed Current occupational exposures/hazards: No Cognitive needs: No Hearing needs: No Vision needs: Yes Physical Exam Vital Signs: Vital Signs: Last Vital Signs Temp 97.9 F 05/25/22 16:23 Pulse 87 05/25/22 16:23 Resp 18 05/25/22 16:23 BP 119/79 05/25/22 16:23 Pulse Ox 99 05/25/22 16:23 O2 Del Method 05/25/22 16:23 BMI result Body Mass Index 26.5 Const: General: cooperative and no acute distress Orientation/consciousness: oriented to person and oriented to place Limitations: no limitations HEENT: Head: Yes normal to inspection, Yes normocephalic and Yes atraumatic Ears: external ears normal General nose exam: Normal external nose present Face and sinus: Yes normal facial exam Mouth: Normal oral and palatal mucosa present Throat: Yes posterior oropharynx normal Eyes: General: appearance normal, both eyes and all related structures Pupils: Equal, round and reactive pupils present Neck: Neck: Yes normal visual inspection, Yes no lymphadenopathy, Yes trachea midline and Yes supple Chest: Chest palpation & inspection: normal inspection of the chest and normal palpation of entire chest wall Resp: Effort & Inspection: normal respiratory effort and able to speak in complete sentences Auscultation: clear to auscultation bilaterally Cardio: Rate: regular rate Rhythm: regular rhythm Heart sounds: S1 normal heart sound present, S2 normal heart sound present and no murmurs GI: Inspection: Yes normal to inspection Palpation (GI): Soft to palpation, Tenderness to palpation present (GI) in the LLQ (Mild) and suprapubicly (Mild) and no guarding Auscultation: normal bowel sounds : General: Yes no CVA tenderness Back/Spine/Pelvis: Back: no CVA tenderness Skin: General skin exam: no rashes or lesions noted Neuro: General: oriented to person and oriented to place Cranial nerves: Yes CN's II-XII intact bilaterally and Yes Equal, round and reactive pupils present Cognition (Neuro): normal cognition Motor exam (neuro): 5/5 motor strength present throughout Extrem: General: Yes normal to inspection Psych: Appearance: grossly normal Speech and movement: Normal speech and movement present Affect: normal affect Attitude: cooperative Thought process: Normal thought process present Thought content: Normal thought content present Course Course Course Narrative: 27-year-old female presents emergency department for evaluation of lower abdominal pain x2 days, she had 2 positive home tests and had a positive test the emergency department with a quantitative beta-hCG of 831. Patient states she had a miscarriage 1 year prior but did not get care for this miscarriage. Patient therefore is a with estimated gestation age of 4 weeks 5 days based on LMP 04/22/2022. Patient's vital signs were stable. Physical examination did reveal suprapubic and left lower quadrant tenderness. CBC and CMP were normal. Blood type is B negative, the patient is not experiencing any bleeding at this time. Ultrasound did not reveal an intrauterine or ectopic . I did discuss this with the patient, it is possible that the patient is too early in her to visualize the fetus however ectopic also needs to be considered. The patient was given Tylenol 975 mg orally. The patient was advised to contact her OBGYN in the morning to get a follow-up quantitative beta-hCG in 4 days and a repeat pelvic ultrasound in 4-7 days. She was given ectopic precautions instructions and discharged home . I also did discuss possible complications with her B negative blood type and the need for RhoGAM in the event of bleeding. MDM - OB/Uterine Contractions Lab Data Result diagrams: 05/25/22 16:43 05/25/22 16:43 Labs: Lab Results 05/25/22 05/25/22 05/25/22 Range/Units 16:43 16:43 16:43 WBC 8.2 (4.8-10.8) X10*3/uL RBC 4.06 L (4.20-5.50) X10*6/uL Hgb 12.0 (12.0-16.0) g/dl Hct 35.0 L (37.0-47.0) % MCV 86.2 (80.0-98.0) fL MCH 29.6 (27.0-33.0) pg MCHC 34.3 (31.0-35.0) g/dl RDW 11.5 (11.0-16.0) % Plt Count 215 (160-400) X10*3/uL MPV 9.5 (9.4-12.3) fL Immature Gran % (Auto) 0.5 H (0.0-0.4) % Neut % (Auto) 58.2 (45-73) % Lymph % (Auto) 29.2 (20-40) % [place] % (Auto) 8.3 (2-11) % Eos % (Auto) 3.3 (0-4) % Baso % (Auto) 0.5 (0-2) % Lymph # (Auto) 2.4 (1.2-4.9) X10*3/uL [place] # (Auto) 0.7 (0.1-1.2) X10*3/uL Eos # (Auto) 0.3 (0.0-0.4) X10*3/uL Baso # (Auto) 0.0 (0.0-0.2) X10*3/uL Abs Immat Gran (auto) 0.04 H (0.00-0.03) X10*3/uL Absolute Neuts (auto) 4.8 (2.0-8.3) x10*3/uL Absolute Nucleated RBC 0.000 (0.0-0.012) X10*3/uL Nucleated RBC % (auto) 0.0 (0.0-0.2) /100WBC Sodium 136 (135-145) mmol/L Potassium 3.6 (3.3-5.1) mmol/L Chloride 104 (96-108) mmol/L Carbon Dioxide 22 (22-29) mmol/L Anion Gap 14 (12-20) BUN 13 (9-16) mg/dL Creatinine 0.69 (0.5-1.4) mg/dL Estim Creat Clear Calc 109.0 Estimated GFR > 60 Random Glucose 93 (60-115) mg/dL Calcium 9.0 D (8.4-10.2) mg/dL Total Bilirubin 0.4 (0.0-1.0) mg/dL Direct Bilirubin 0.2 (0.0-0.5) mg/dL AST 21 (5-31) U/L ALT 27 (0-31) U/L Alkaline Phosphatase 45 (39-117) U/L Total Protein 7.6 (6.5-8.0) g/dL Albumin 4.6 (3.5-5.0) g/dL Lipase 50 (8-78) U/L Beta HCG, Quant 831 mIU/mL Urine Color Urine Appearance Urine pH (5.0-8.0) Ur Specific Cooks (1.005-1.025) Urine Protein (NEG-TRACE) MG/DL Urine Glucose (UA) (NEG) MG/DL Urine Ketones (NEG) MG/DL Urine Blood (NEG) Urine Nitrite (NEG) Ur Leukocyte Esterase (NEG) Urine Test (NEGATIVE) Blood Type 05/25/22 05/25/22 05/25/22 Range/Units 16:43 16:43 16:43 WBC (4.8-10.8) X10*3/uL RBC (4.20-5.50) X10*6/uL Hgb (12.0-16.0) g/dl Hct (37.0-47.0) % MCV (80.0-98.0) fL MCH (27.0-33.0) pg MCHC (31.0-35.0) g/dl RDW (11.0-16.0) % Plt Count (160-400) X10*3/uL MPV (9.4-12.3) fL Immature Gran % (Auto) (0.0-0.4) % Neut % (Auto) (45-73) % Lymph % (Auto) (20-40) % [place] % (Auto) (2-11) % Eos % (Auto) (0-4) % Baso % (Auto) (0-2) % Lymph # (Auto) (1.2-4.9) X10*3/uL [place] # (Auto) (0.1-1.2) X10*3/uL Eos # (Auto) (0.0-0.4) X10*3/uL Baso # (Auto) (0.0-0.2) X10*3/uL Abs Immat Gran (auto) (0.00-0.03) X10*3/uL Absolute Neuts (auto) (2.0-8.3) x10*3/uL Absolute Nucleated RBC (0.0-0.012) X10*3/uL Nucleated RBC % (auto) (0.0-0.2) /100WBC Sodium (135-145) mmol/L Potassium (3.3-5.1) mmol/L Chloride (96-108) mmol/L Carbon Dioxide (22-29) mmol/L Anion Gap (12-20) BUN (9-16) mg/dL Creatinine (0.5-1.4) mg/dL Estim Creat Clear Calc Estimated GFR Random Glucose (60-115) mg/dL Calcium (8.4-10.2) mg/dL Total Bilirubin (0.0-1.0) mg/dL Direct Bilirubin (0.0-0.5) mg/dL AST (5-31) U/L ALT (0-31) U/L Alkaline Phosphatase (39-117) U/L Total Protein (6.5-8.0) g/dL Albumin (3.5-5.0) g/dL Lipase (8-78) U/L Beta HCG, Quant mIU/mL Urine Color YELLOW Urine Appearance CLEAR Urine pH 5.5 (5.0-8.0) Ur Specific Cooks 1.020 (1.005-1.025) Urine Protein NEG (NEG-TRACE) MG/DL Urine Glucose (UA) NEG (NEG) MG/DL Urine Ketones NEG (NEG) MG/DL Urine Blood NEG (NEG) Urine Nitrite NEG (NEG) Ur Leukocyte Esterase NEG (NEG) Urine Test POSITIVE H (NEGATIVE) Blood Type B Negative Procedures Perimortem Number of Weeks : 4 weeks 5 days Discharge Plan Discharge Clinical Impression: , Abdominal pain affecting Patient Disposition: Home, Self-Care Instructions: Abdominal Pain in (ED) Additional Instructions: Your urine test was positive. Your blood test (quantitative beta-hCG) was positive at 831. You had a pelvic ultrasound and transvaginal ultrasound that did not reveal an intrauterine or an ectopic (a in the fallopian tubes) It is possible that you are too early on in your (4 weeks and 5 days) to determine if your is in the uterus or in the fallopian tube You need to call your OBGYN tomorrow, with your reinforcement maker, Amie العراقي or Dr. Clay in for them to see you in the office and to get a follow-up quantitative beta-hCG in 4 days and a follow-up pelvic ultrasound in 4-7 days. A in the fallopian tube is dangerous and can cause the fallopian tube to rupture and cause bleeding into your abdomen. If you have increased pain, lightheadedness, dizziness, weakness then you should return to the emergency department immediately for re-evaluation otherwise follow-up with your OBGYN. Your blood type is B negative. If you have any bleeding during this then you should talk to your OBGYN or come to the emergency department and be treated with RhoGAM medicine that helps reduce the possibility of you getting antibodies against the baby's blood. Follow-up with your OBGYN doctor in 1-2 days. Please return to the emergency department if your symptoms get worse or if you develop any symptoms that are concerning to you. Prescriptions: No Action albuterol sulfate 1.25 mg/3 mL solution for nebulization 2.5 mg inhalation Q4-6H PRN (Reason: shortness of breath or wheezing) Qty: 15 0RF albuterol sulfate [ProAir HFA] 90 mcg/actuation HFA aerosol inhaler 2 puff inhalation Q4-6H PRN (Reason: shortness of breath or wheezing) Qty: 8.5 2RF omeprazole 20 mg capsule,delayed release(DR/EC) 20 mg PO DAILY Qty: 30 1RF Referrals: Andrew Clay MD [Physician] - 1 day (LMP 04/22/2022, , 4 weeks 5 days presented to the ED with pelvic and left lower quadrant pain. Quantitative beta-hCG was 831, blood type B negative, ultrasound did not show an intrauterine or ectopic . Needs follow-up with repeat quantitative beta-hCG and ultrasound) Print Language: Irish
[2022-05-26] MEDS: Acetaminophen 325 MG TABLET 975 MG PO (00:22)
== END 2022-05-26 01:09 | disposition home or self-care (01) ==
PROVIDERS: Emergency Provider Emergency Medicine Emergency Medical Services; PCP Nurse Practitioner Acute Care
DX: O26.891 Other specified pregnancy related conditions, first trimester (principal); R10.9 Unspecified abdominal pain; Z3A.01 Less than 8 weeks gestation of pregnancy
CPT/HCPCS: 36415; 76801; 76817; 76830; 80053; 81003; 81025; 82248; 83690; 84702; 85025; 86900; 86901; 99283; 99284

== ENCOUNTER 2022-05-27 15:51 | Outpatient (REF) | payer OTHER, SELFPAY ==
[2022-05-27 17:06] LABS: Anion Gap 14 (12-20); Blood Urea Nitrogen 11 mg/dL (9-16); Calcium 8.9 mg/dL (8.4-10.2); Carbon Dioxide 23 mmol/L (22-29); Chloride 105 mmol/L (96-108); Estimated Glomerular Filt Rate > 60; Glucose Fasting 99 mg/dL (60-99); Potassium 3.9 mmol/L (3.3-5.1); Sodium 138 mmol/L (135-145)
[2022-05-27 17:30] LABS: HCG Quantitative 1417 mIU/mL; TSH reflex Free T4 1.41 uIU/mL (0.32-4.0); Thyroid Stimulating Hormone 1.45 uIU/mL (0.32-4.0)
== END 2022-05-27 15:52 | disposition home or self-care (01) ==
LOC: HO.LAB 15:51
PROVIDERS: Nurse Practitioner Family; Visit Provider Advanced Practice Midwife
DX: O26.899 Other specified pregnancy related conditions, unspecified trimester (principal); E04.1 Nontoxic single thyroid nodule; E16.2 Hypoglycemia, unspecified; Z76.89 Persons encountering health services in other specified circumstances
CPT/HCPCS: 36415; 80048; 82306; 84443; 84702

== ENCOUNTER → 2022-05-28 14:03 | Outpatient (BNVA) | payer OTHER, SELFPAY | PROVIDERS: PCP Nurse Practitioner Acute Care; Visit Provider Advanced Practice Midwife | DX: O26.899 Other specified pregnancy related conditions, unspecified trimester (principal); R10.2 Pelvic and perineal pain; Z3A.00 Weeks of gestation of pregnancy not specified | CPT/HCPCS: 81003; 81025; 99212 ==

== ENCOUNTER 2022-05-29 16:51 | Outpatient (REF) | payer OTHER, SELFPAY ==
[2022-05-29 18:08] LABS: HCG Quantitative 2923 mIU/mL
== END 2022-05-29 16:52 | disposition home or self-care (01) ==
LOC: HO.LAB 16:51
PROVIDERS: Visit Provider Advanced Practice Midwife
DX: O26.891 Other specified pregnancy related conditions, first trimester (principal); R10.2 Pelvic and perineal pain; Z3A.01 Less than 8 weeks gestation of pregnancy
CPT/HCPCS: 36415; 84702

== ENCOUNTER 2022-06-02 17:26 | Outpatient (REF) | payer OTHER, SELFPAY ==
[2022-06-02 18:04] LABS: HCG Quantitative 10997 mIU/mL
== END 2022-06-02 17:27 | disposition home or self-care (01) ==
LOC: HO.LAB 17:26
PROVIDERS: Visit Provider Advanced Practice Midwife
DX: O26.899 Other specified pregnancy related conditions, unspecified trimester (principal); R10.2 Pelvic and perineal pain
CPT/HCPCS: 36415; 84702

== ENCOUNTER 2022-06-06 12:47 | Outpatient (REF) | payer OTHER, SELFPAY ==
--- NOTE | ~2022-06-06 | US_ITS ---
EXAMINATION: US OBSTETRICAL ULTRASOUND CLINICAL INFORMATION: Left-sided pain. Positive test. COMPARISON: Previous exam 05/25/2022. LMP: 04/22/2022. Gestational age by maternal dates is 6 weeks 3 days. Estimated date of delivery by maternal dates is 01/27/2023. TECHNIQUE: Transabdominal and transvaginal first trimester OB ultrasound. Transvaginal exam was performed for better visualization of the gestational sac. FINDINGS: There is a single intrauterine gestational sac with visible yolk sac, embryo/fetus, and cardiac activity. There is no significant subchorionic hemorrhage or hematoma. HR: 107 beats per minute. CRL (crown rump length): 0.31 cm (6 weeks 0 days +/- 4 days). ALBA (estimated date of delivery): 01/30/2023 +/- 4 days. MATERNAL ADNEXA: The right maternal ovary measures 3 x 2.2 x 1.6 cm. The left maternal ovary measures 2.8 x 1.6 x 3.5 cm. There is a 1.6 x 1.1 x 2.1 cm complex left ovarian cyst probably representing a corpus luteum. There is trace fluid in the maternal pelvis. US/US OB pelvic and transvaginal IMPRESSION: 1. Single intrauterine gestation with ultrasound gestational age of 6 weeks 0 days +/- 4 days. 2. Estimated date of delivery is 01/30/2023 +/- 4 days.
== END 2022-06-06 12:48 | disposition home or self-care (01) ==
LOC: HO.US 12:47
PROVIDERS: Visit Provider Advanced Practice Midwife
DX: O26.891 Other specified pregnancy related conditions, first trimester (principal); Z3A.01 Less than 8 weeks gestation of pregnancy; R10.2 Pelvic and perineal pain
CPT/HCPCS: 76801; 76817

== ENCOUNTER → 2022-06-16 13:07 | Outpatient (BNVA) | payer OTHER, SELFPAY | PROVIDERS: Visit Provider Advanced Practice Midwife | DX: Z34.90 Encounter for supervision of normal pregnancy, unspecified, unspecified trimester (principal) | CPT/HCPCS: 99212 ==

== ENCOUNTER → 2023-06-04 10:55 | Outpatient (BNVA) | payer OTHER, SELFPAY | PROVIDERS: Visit Provider Advanced Practice Midwife ==

== ENCOUNTER 2024-02-08 13:59 | Outpatient (REF) | payer OTHER, SELFPAY ==
[2024-02-09 13:18] LABS: BV Int Neg Control Negative (Negative); BV Int Pos Control Positive (Positive)
== END 2024-02-08 14:00 | disposition home or self-care (01) ==
LOC: HO.LNP 13:59
PROVIDERS: Visit Provider Advanced Practice Midwife
DX: Z11.3 Encounter for screening for infections with a predominantly sexual mode of transmission (principal); E04.1 Nontoxic single thyroid nodule
CPT/HCPCS: 87480; 87510; 87660; 99395

== ENCOUNTER 2024-02-08 13:59 | Outpatient (AMB) | payer OTHER, SELFPAY ==
[2024-02-08 14:00] VITALS: BMI 28.7
--- NOTE | 2024-02-08 14:00 | MHC.OFFVIS ---
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 Oversize Load Pilot Escort Required: Yes Oversize Load Pilot Escort Language: Egyptian Information Interpreted: non-clinical & clinical Public Area Supervisor: Public Area Supervisor Present (Skipyn) Allergies kiwi Allergy (Intermediate, Verified 02/08/24 14:03) Anaphylaxis dexbrompheniramine [From Conex] Allergy (Verified 02/08/24 14:03) Unknown guaifenesin [From Conex] Allergy (Verified 02/08/24 14:03) Unknown phenylephrine [From Conex] Allergy (Verified 02/08/24 14:03) Unknown pseudoephedrine [From Conex] Allergy (Verified 02/08/24 14:03) Unknown Medication List - Last Reconciled 02/08/24 by Amie العراقي CNM albuterol sulfate 90 mcg/actuation (ProAir HFA) 2 puffs inhalation Q4-6H PRN Is last menstrual period known: Yes Last menstrual period: 01/27/24 Post menopausal: No HPI HPI SEO 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 She had her baby about a year ago she had a at 36 weeks after uncomplicated induction for preeclampsia which was pretty severe at 36 weeks at [facility] where she was being seen for the [facility].. She is not currently contraceptive she had rather not have a baby right away but if she did get she would keep it and continue the she would like 1 but not now. She says she has been having lots swelling in her hands and her feet and discomfort in them as well and she said she went to to hospital drive were her primary care provider used to be and they told her to check with us because of her history of preeclampsia. She is normotensive today. See plan for discussion however in general the patient needs to see a primary care provider and would be directed to return to the office where she had been seen for primary care and see if she can be reassigned to a new provider. She has lost weight since she delivered her baby however she has not at her ideal weight and she would like to lose weight herself so she can get into a bikini for the summer. She has not interested in control at this time other than condoms. She would like her thyroid labs check because she was told she had a thyroid problem in the past and she also said she was anemic in the as well and she would be interested in getting testing for HIV etc. along with these labs. [facility] Medical History (Updated 02/08/24 @ 15:55 by Amie العراقي CNM) Encounter to establish care Hypoglycemia Hypothyroid Surgical History (Updated 02/08/24 @ 15:46 by Amie العراقي CNM) Hx of section No pertinent past surgical history Family History Mother No problems noted. Father Seizure Respiratory failure Social History Housing: Apartment Alcohol intake: current Alcohol intake frequency: a few times a month Patient Tobacco Use Status: Never used Tobacco e-Cigarette/Vaping Use: Never Used Second Hand Smoke Exposure: No service: No Current occupational status: employed Current occupational exposures/hazards: No Cognitive needs: No Hearing needs: No Vision needs: Yes Female Reproductive History Menstrual Age of Menarche: 9 Duration of menses: 8-10 days Date of last menstrual period: 01/27/24 control method: none Total pregnancies: 1 Full term: 1 Number of Living Children: 1 Date of last pap smear: 04/16/22 (negative) History of abnormal pap smear: No Physical Exam Vital Signs: BMI result Body Mass Index 28.7 Const General: healthy appearing, comfortable, no acute distress, well developed and alert Nutritional Appearance: average body habitus Orientation/consciousness: patient oriented x3 Limitations: no limitations HEENT Head: Yes normocephalic Neck Neck: Yes normal visual inspection Thyroid: Thyroid normal Chest Chest palpation & inspection: normal inspection of the chest Breast/axilla inspection: normal inspection of the breasts and normal inspection of the axillae Breast/axilla palpation: normal palpation of the breasts and normal palpation of the axillae Resp Effort & Inspection: normal respiratory effort GI Inspection: Yes normal to inspection, No Abdominal wall edema and No distended Palpation (GI): Soft to palpation and nontender Other: Normal external exam vagina pink and moist nulliparous cervix pink smooth healthy with what appears to be very clear mucus at os possibly consistent with being around the time of ovulation uterus small midposition nontender adnexa nontender good tone with Kegel. General: Yes bladder normal to palpation External Female Exam: normal external appearance and normal appearance of the urethra Speculum Exam - Vagina: normal appearance of the vagina, normal palpation and normal vaginal discharge Speculum Exam - Cervix: normal appearance of the cervix, normal palpation and nontender Bimanual exam- vagina & uterus: normal bimanual exam, normal palpation, uterine size normal, bladder normal to palpation, consistency normal, normal palpation, uterine mobility normal, uterine shape normal, No Cervical tenderness present, non-tender and no cervical motion tenderness Bimanual Exam- Adnexa, other: normal adnexae, no masses, normal and No adnexal tenderness Neuro General: patient oriented x3 Assessment & Plan Assessment & Plan (1) Thyroid nodule: Comment: 03/20/22 US/US thyroid IMPRESSION: There are 4 thyroid nodules, largest measuring 0.8 cm in the right mid pole (TR 3) and 0.7 cm in the isthmus (TR 1), not meeting size criteria for follow up according to the ACR guidelines below. Recommend management per clinical discretion. 02/08/2024- @ nicking machine operator annual , no nodules palpable by this provider, TSH ordered, patient needs a primary care provider. Code(s): E04.1 - Nontoxic single thyroid nodule Category: Medical (2) Well woman exam with routine gynecological exam: Code(s): Z01.419 - Encounter for gynecological examination (general) (routine) without abnormal findings Category: Medical (3) Screen for sexually transmitted diseases: Code(s): Z11.3 - Encounter for screening for infections with a predominantly sexual mode of transmission Category: Medical (4) Cervical cancer screening: Comment: 04/15/22 pap= neg w neg hpv Code(s): Z12.4 - Encounter for screening for malignant neoplasm of cervix Category: Medical (5) Hypothyroid: Code(s): E03.9 - Hypothyroidism, unspecified Category: Medical (6) History of severe pre-eclampsia: Comment: Discussed risks for hypertension and preeclampsia in future, and healthy practices... Code(s): Z87.59 - Personal history of other complications of , childbirth and the puerperium Category: Medical (7) History of anemia: Code(s): Z86.2 - Personal history of diseases of the blood and blood-forming organs and certain disorders involving the immune mechanism Category: Medical (8) Family planning counseling: Code(s): Z30.09 - Encounter for other general counseling and advice on contraception Category: Medical Plan -----Discussed in this visit the following: healthy balanced diet, regular and consistent exercise, getting recommended health screens, doing the best she can for her particular health concerns, kegel exercises, pap smear screening and followup recommendations, mammography screening and SBE, normal changes in cycles in her life stage--- . Discussed several things in his visit. First the patient needs to find a primary care provider suggest she start where her previous provider was see if she can see 1 of their new providers there. --discussed that her hands and feet swelling are not indicative of anything nicking machine operator at this current time. I did discuss with her that because she did have severe preeclampsia she would be at risk to have preeclampsia in future and at a future she would need to be seen at [facility] and she would probably be given baby aspirin to take 2 pills a day for the duration of the which is the recommendation at this current time to try and prevent future recurrence of preeclampsia. Additionally she is at increased risk to develop hypertension in the future and especially so if she gains weight. ---------when she finds a primary care provider she will want to be following up on her thyroid issue though I have ordered her a TSH today and I asked her to call me in about a week to get the results. She has not yet on the portal but she will check at the hospital for brochures on getting on the portal as you are out of them today. She intends to go to the lab downstairs today to get the lab work. I did offer her other testing for STIs -also discussed control and planning and that if she has not contraceptive she is voting to being open to . She has not opposed but just wants to delay it for a while and she herself wants very much to use some of her weight for her own self will being. I recommend using this is motivation for now. Additionally she said she was anemic in the so I am adding a CBC to lab work as well. She was not interested in any other method of control other than condoms. Orders: Orders Bacterial Vaginosis Panel Today Z11.3 - Encounter for screening for infections with a predominantly sexual mode of transmission CT NG by PCR Today Z11.3 - Encounter for screening for infections with a predominantly sexual mode of transmission Hepatitis B Surface Antigen Today E04.1 - Nontoxic single thyroid nodule, Z01.419 - Encounter for gynecological examination (general) (routine) without abnormal findings, Z11.3 - Encounter for screening for infections with a predominantly sexual mode of transmission, Z12.4 - Encounter for screening for malignant neoplasm of cervix Hepatitis C Antibody Today E04.1 - Nontoxic single thyroid nodule, Z01.419 - Encounter for gynecological examination (general) (routine) without abnormal findings, Z11.3 - Encounter for screening for infections with a predominantly sexual mode of transmission, Z12.4 - Encounter for screening for malignant neoplasm of cervix HIV Ab/Ag Today E04.1 - Nontoxic single thyroid nodule, Z01.419 - Encounter for gynecological examination (general) (routine) without abnormal findings, Z11.3 - Encounter for screening for infections with a predominantly sexual mode of transmission, Z12.4 - Encounter for screening for malignant neoplasm of cervix Complete Blood Count no Diff Today E04.1 - Nontoxic single thyroid nodule, Z01.419 - Encounter for gynecological examination (general) (routine) without abnormal findings, Z11.3 - Encounter for screening for infections with a predominantly sexual mode of transmission, Z12.4 - Encounter for screening for malignant neoplasm of cervix Thyroid Stimulating Hormone Today E04.1 - Nontoxic single thyroid nodule, Z01.419 - Encounter for gynecological examination (general) (routine) without abnormal findings, Z11.3 - Encounter for screening for infections with a predominantly sexual mode of transmission, Z12.4 - Encounter for screening for malignant neoplasm of cervix Syphilis Screen Today E04.1 - Nontoxic single thyroid nodule, Z01.419 - Encounter for gynecological examination (general) (routine) without abnormal findings, Z11.3 - Encounter for screening for infections with a predominantly sexual mode of transmission, Z12.4 - Encounter for screening for malignant neoplasm of cervix
== END 2024-02-08 15:13 | disposition home or self-care (01) ==
LOC: HO.HWSM 13:59
PROVIDERS: Visit Provider Advanced Practice Midwife
DX: Z01.419 Encounter for gynecological examination (general) (routine) without abnormal findings (principal); E04.1 Nontoxic single thyroid nodule; E03.9 Hypothyroidism, unspecified
CPT/HCPCS: 99395

== ENCOUNTER 2024-02-08 14:57 | Outpatient (REF) | payer OTHER, SELFPAY ==
[2024-02-08 16:17] LABS: Hemoglobin 13.5 g/dl (12.0-16.0); Mean Corpuscular HGB Conc 32.9 g/dl (31.0-35.0); Mean Corpuscular Hemoglobin 29.4 pg (27.0-33.0); Mean Corpuscular Volume 89.3 fL (80.0-98.0); Platelet Count 311 X10*3/uL (160-400); Red Blood Count 4.59 X10*6/uL (4.20-5.50); Red Cell Distribution Width 11.6 % (11.0-16.0); White Blood Count 6.8 X10*3/uL (4.8-10.8)
[2024-02-08 16:53] LABS: Thyroid Stimulating Hormone 1.68 uIU/mL (0.32-4.0)
[2024-02-09 04:09] LABS: Syphilis Screen Nonreactive (Nonreactive)
[2024-02-09 04:35] LABS: HBsAGNum1 0.33 S/CO (0.00-0.99); HIV AB/AG Nonreactive (Nonreactive); HIV Num 1 0.05 S/CO (0.00-0.99); Hepatitis B Surface Antigen Negative (Negative); ~HepC Num1 0.16 S/CO (0.00-0.79); ~Hepatitis C Antibody Nonreactive (Nonreactive)
[2024-02-09 06:46] LABS: CT PCR NOT DETECTED (Not Detect.); NG PCR NOT DETECTED (Not Detect.)
== END 2024-02-08 14:58 | disposition home or self-care (01) ==
LOC: HO.HHCL 14:57
PROVIDERS: Visit Provider Advanced Practice Midwife
DX: Z11.4 Encounter for screening for human immunodeficiency virus [HIV] (principal); Z11.3 Encounter for screening for infections with a predominantly sexual mode of transmission; E04.1 Nontoxic single thyroid nodule
CPT/HCPCS: 0353U; 84443; 85027; 86780; 86803; 87340; 87389

== ENCOUNTER 2024-02-17 13:30 | Outpatient (AMB) | payer MEDICAID, SELFPAY ==
--- NOTE | 2024-02-17 13:33 | A.OFFPC_ITS ---
Vital Signs 02/17/24 13:36 Height 5 ft 2 in Weight 157 lb 2 oz BMI 28.7 BP 110/62 Blood Pressure Location Lt brachial Position Sitting Pulse 81 Pulse Source Pulse Oximeter Pulse Oximetry (%) 98 Oxygen Delivery Method Room Air Intake Visit Reasons: ED F/U Intake Note: Patient is here today to follow-up on swelling and numbness of both hands on going for two weeks, and pain in both knees. History of thyroid issues, notice swelling of neck. Request results of lab order on 02/08/24 Water Regulator And Valve Repairer Required: Yes Water Regulator And Valve Repairer Language: Shovel Handle Assembler Name: Oj ([id number]) Information Interpreted: non-clinical & clinical Station Tender: Not Required per policy Accompanied by: Self / Same As Patient Allergies kiwi Allergy (Intermediate, Verified 02/17/24 14:04) Anaphylaxis dexbrompheniramine [From Conex] Allergy (Verified 02/17/24 14:04) Unknown guaifenesin [From Conex] Allergy (Verified 02/17/24 14:04) Unknown phenylephrine [From Conex] Allergy (Verified 02/17/24 14:04) Unknown pseudoephedrine [From Conex] Allergy (Verified 02/17/24 14:04) Unknown Medication List - Last Reconciled 02/17/24 by Jake Bermudez MD albuterol sulfate 90 mcg/actuation (ProAir HFA) 2 puffs inhalation Q4-6H PRN Tobacco use date assessed: 02/17/24 Dental Screening Dental Screen Date: 02/17/24 Did you have a dental visit in the last 12 months?: No Did you have a dental problem in the last 6 months where you did not have access to dental care?: No Was dental information given to patient?: No HPI ED F/U HPI Details 29-year-old female presents to the [facility] e to establish her care. She is reporting swelling in her hands and feet, around the neck for the past 2 weeks. Associated with minimal joint pains and morning stiffness. Currently on no medications. She is taking care of a 12 month infant and lives by herself. Not working outside the house. Nonsmoker. No history of alcohol use. Recent travel to [place] in December. COUNT INCLUDES THE [facility] Medical History Encounter to establish care Hypoglycemia Hypothyroid Surgical History Hx of section Family History Mother No problems noted. Father Seizure Respiratory failure Social History Housing: Apartment Alcohol intake: current Alcohol intake frequency: does not drink Patient Tobacco Use Status: Never used Tobacco e-Cigarette/Vaping Use: Never Used Second Hand Smoke Exposure: No service: No Current occupational status: employed Current occupational exposures/hazards: No Cognitive needs: No Hearing needs: No Vision needs: Yes Female Reproductive History Menstrual Age of Menarche: 9 Questionnaire PHQ-9 Over the last 2 weeks, how often have you been bothered by any of the following problems? 1. Little interest or pleasure in doing things: not at all 2. Feeling down, depressed, or hopeless: not at all 3. Trouble falling or staying asleep, or sleeping too much: not at all 4. Feeling tired or having little energy: not at all 5. Poor appetite or overeating: not at all 6. Feeling bad about yourself - or that you are a failure or have let yourself or your family down: not at all 7. Trouble concentrating on things, such as reading the newspaper or watching television: not at all 8. Moving or speaking so slowly that other people could have noticed. Or the opposite - being so fidgety or restless that you have been moving around a lot more than usual: not at all 9. Thoughts that you would be better off or of hurting yourself in some way: not at all Total score: 0 Depression Screening Interpretation: Negative Depression Screening Done: Yes Source: Developed by Drs. Clovis Armstrong, Shana De Leon, Teodoro Cruz and colleagues, with an educational bria from [employer]. Thrive Questionnaire Date Thrive assessed: 02/17/24 I am a: Patient What is your living situation today?: I have a steady place to live Within the past 12 months, did the food you bought not last and you didn't have the money to get more?: Never true Within the past 12 months, did you worry whether your food would run out before you got money to buy more?: Never true Do you have trouble paying for medicines?: No Do you have trouble getting transportation to medical appointments?: No Do you have trouble paying your heating and electricity bill?: No Do you have trouble taking care of your child, family member or friend?: No Do you have trouble with day-to-day activities such as bathing, preparing meals, shopping, managing finances, etc.?: No Are you currently unemployed and looking for a job?: No Are you interested in more education?: No Currently or been in a relationship where the following occur: no concerns reported THRIVE Score: 0 AUDIT C Alcohol Use Questionnaire (AUDIT-C) 1. How often do you have a drink containing alcohol?: Never Total Score: 0 DIEUDONNE-7 AMB Questionnaire DIEUDONNE-7 Date DIEUDONNE - 7 assessed: 02/17/24 Feeling nervous, anxious, or on edge: 0 = Not at all Not being able to stop or control worryin = Not at all Worrying too much about different things: 0 = Not at all Trouble relaxin = Not at all Being so restless that it is hard to sit still: 0 = Not at all Becoming easily annoyed or irritable: 0 = Not at all Feeling afraid as if something awful might happen: 0 = Not at all Total DIEUDONNE-7 score (0-4 normal; 5-9 mild; 10-14 moderate; 15-21 severe): 0 Source: Developed by Drs. Clovis Armstrong, Shana De Leon, Teodoro Cruz and colleagues, with an educational bria from [employer]. Physical exam (Primary Care) Vital Signs: Last Vital Signs Pulse 81 02/17/24 13:36 BP 110/62 02/17/24 13:36 Pulse Ox 98 02/17/24 13:36 Oxygen Delivery Method Room Air 02/17/24 13:36 BMI result Body Mass Index 28.7 Tobacco/Smoking Status: Tobacco use Status Tobacco use date assessed 02/17/24 02/17/24 13:39 Patient Tobacco Use Status Never used Tobacco 02/17/24 13:45 e-Cigarette/Vaping Use Never Used 02/17/24 13:45 PHQ-9: PHQ-9 Score PHQ-9: Total score 0 02/17/24 13:46 Depression Screening Interpretation: Negative Thrive Assessment: Date of Thrive Assessment Date Thrive assessed 02/17/24 02/17/24 13:39 Currently or been in a relationship where the following occur: no concerns reported Const General: cooperative and healthy appearing Nutritional Appearance: well nourished Orientation/consciousness: patient oriented x3 Limitations: no limitations HENMT Head: Yes normal to inspection Eyes General: appearance normal, both eyes and all related structures Neck Neck: Yes normal visual inspection Chest Chest palpation & inspection: normal palpation of entire chest wall Resp Effort & Inspection: normal respiratory effort Neuro General: patient oriented x3 Extrem Other: Right and left hand: No visible swelling. Full range of motion in all digits. Assessment and Plan Assessment & Plan (1) Arthralgia: Code(s): M25.50 - Pain in unspecified joint Plan: Blood work has been ordered. Follow-up in 2 weeks. Orders: Orders Basic Metabolic Panel Today M25.50 - Pain in unspecified joint Lyme IgG/IgM w/reflex to WB Today M25.50 - Pain in unspecified joint Thyroid Stimulating Hormone Today M25.50 - Pain in unspecified joint Liver Panel Today M25.50 - Pain in unspecified joint Lipid Panel Today M25.50 - Pain in unspecified joint Erythrocyte Sedimentation Rate Today M25.50 - Pain in unspecified joint C Reactive Protein Today M25.50 - Pain in unspecified joint Complete Blood Count no Diff Today M25.50 - Pain in unspecified joint UA and rflx microscopic Today M25.50 - Pain in unspecified joint Coding Level of Care Code New Pt Level 4 (71137) Diagnoses Arthralgia M25.50
[2024-02-17 13:36] VITALS: BP 110/62; PULSE 81; O2SAT 98; BMI 28.7
== END 2024-02-17 16:43 | disposition home or self-care (01) ==
LOC: HO.HMGH 13:30
PROVIDERS: Visit Provider Internal Medicine
DX: M25.50 Pain in unspecified joint (principal)
CPT/HCPCS: 99214

== ENCOUNTER 2024-02-17 14:18 | Outpatient (REF) | payer MEDICAID, SELFPAY ==
[2024-02-17 15:42] LABS: Hematocrit 38.7 % (37.0-47.0); Hemoglobin 13.1 g/dl (12.0-16.0); Mean Corpuscular HGB Conc 33.9 g/dl (31.0-35.0); Mean Corpuscular Hemoglobin 29.7 pg (27.0-33.0); Mean Corpuscular Volume 87.8 fL (80.0-98.0); Platelet Count 275 X10*3/uL (160-400); Red Blood Count 4.41 X10*6/uL (4.20-5.50); Red Cell Distribution Width 11.7 % (11.0-16.0); White Blood Count 7.5 X10*3/uL (4.8-10.8)
[2024-02-17 16:28] LABS: Erythrocyte Sedimentation Rate 6 MM/HR (0-20)
[2024-02-17 16:41] LABS: Alanine Aminotransferase 62 U/L (0-31); Albumin Level 4.7 g/dL (3.5-5.0); Alkaline Phosphatase 84 U/L (39-117); Anion Gap 13 (12-20); Aspartate Amino Transferase 22 U/L (5-31); Bilirubin Direct 0.1 mg/dL (0.0-0.5); Bilirubin Total 0.3 mg/dL (0.0-1.0); Blood Urea Nitrogen 13 mg/dL (9-16); C Reactive Protein 0.34 mg/dL (< or = 0.50); Calcium 9.5 mg/dL (8.4-10.2); Carbon Dioxide 26 mmol/L (22-29); Chloride 103 mmol/L (96-108); Cholesterol 187 mg/dL (<200); Estimated Glomerular Filt Rate > 60; Glucose Random 84 mg/dL (60-115); HDL Cholesterol 57 mg/dL (>40); LDL Cholesterol Calculated 101 mg/dL (<100); Potassium 3.8 mmol/L (3.3-5.1); Sodium 138 mmol/L (135-145); Total Protein 8.2 g/dL (6.5-8.0); Triglycerides 146 mg/dL (<150)
[2024-02-17 16:57] LABS: Thyroid Stimulating Hormone 1.32 uIU/mL (0.32-4.0)
[2024-02-17 17:57] LABS: Appearance Urine Clear; Color Urine Yellow; Glucose Urine UA Negative (Negative); Leukocyte Esterase Urine Negative (Negative); Nitrite Urine Negative (Negative); PH 5.5 (5.0-9.0); Specific Gravity - Urine 1.025 (1.005-1.025); Urine Blood Negative (Negative); Urine Ketones Negative (Negative); Urine Protein Negative (Neg-Trace)
[2024-02-18 23:44] LABS: Lyme Abs Screen <0.90 index
== END 2024-02-17 14:19 | disposition home or self-care (01) ==
LOC: HO.LAB 14:18
PROVIDERS: Visit Provider Internal Medicine
DX: M25.50 Pain in unspecified joint (principal)
CPT/HCPCS: 36415; 80048; 80061; 80076; 81003; 84443; 85027; 85652; 86140; 86617; 86618